=== PATIENT | male | born 1970 | race Caucasian/White ===

== ENCOUNTER 2017-09-25 09:13 | Day surgery (SDC) | payer MEDICARE, OTHER ==
[2017-09-25] VITALS (8 sets, daily range): BP systolic 103–137; BP diastolic 49–92
[~2017-09-25] VITALS: Ht 180.3 cm; Wt 88.5 kg
--- NOTE | 2017-09-25 06:53 | Pre-Procedure Note/Attestation ---
Pre-Procedure Note/Attestation Complete Prior to Procedure Planned Procedure: left Procedure Narrative: left shoulder scope, labral repair and decompression of cyst Indications for Procedure Pre-Operative Diagnosis: left shoulder dislocation Attestation I attest that I discussed the nature of the procedure; its benefits; risks and complications; and alternatives (and the risks and benefits of such alternatives ), prior to the procedure, with the patient (or the patient's legal product representative). I attest that, if there was a reasonable possibility of needing a blood transfusion, the patient (or the patient's legal product representative) was given the [facility] standardized written summary, pursuant to the Chuck Ar Blood Safety Act ([place] Health and Safety Code # 1645, as amended). I attest that I re-evaluated the patient just prior to the surgery and that there has been no change in the patient's H&P, except as documented below:none Genaro Mendieta MD Sep 25, 2017 06:53
[~2017-09-25 09:13] MED LIST: BACITRACIN15 GM TOPIC; Bupivacaine 0.5% Inj 30 ml vial INJ ONE; ceFAZolin 1gm in D5W 55ml IVP ONE; celeBREX 200mg Cap **SURGERY PATIENTS ONLY ORAL ONE; oxyCONTIN 20mg tab ORAL ONE
[2017-09-25] MEDS ORDERED: oxyCONTIN 20mg tab ORAL ONE (10:04)
[2017-09-25] MEDS ORDERED: celeBREX 200mg Cap **SURGERY PATIENTS ONLY ORAL ONE (10:04)
[2017-09-25] MEDS ORDERED: GABAPENTIN300 MG ORAL (10:15)
[2017-09-25] MEDS ORDERED: NEXIUM20 MG ORAL (10:15)
[2017-09-25] MEDS ORDERED: VALIUM5 MG ORAL (10:16)
[2017-09-25] MEDS ORDERED: AMBIEN10 M1 ORAL (10:17)
[2017-09-25] MEDS ORDERED: NORCO 5-325 TA1 EACH ORAL (10:17)
[2017-09-25] MEDS ORDERED: KLONOPIN1 MG ORAL (10:17)
[2017-09-25] MEDS ORDERED: IBUPROFEN600 MG ORAL (10:18)
[2017-09-25] MEDS ORDERED: BIKTARVY 50-201 EACH PO (10:19)
[2017-09-25] MEDS ORDERED: Dexamethasone 4mg/ml vial ONE (10:20)
[2017-09-25] MEDS ORDERED: Lidocaine 1% MPF 10mg/ml 5ml ONE (10:20)
[2017-09-25] MEDS ORDERED: Ropivacaine 5mg/ml Vial 30ml INJ ONE ×2 (10:20→10:36)
[2017-09-25] MEDS ORDERED: Sodium Chloride 10ml vial INJ ONE (10:20)
[2017-09-25] MEDS ORDERED: Propofol 200mg/20ml IV ONE (10:20)
[2017-09-25] MEDS ORDERED: Alfentanil 2ml Inj ONE (10:29)
[2017-09-25] MEDS ORDERED: EPINEPHrine 1mg/1ml Amp ONE ×2 (10:35→11:09)
[2017-09-25] MEDS ORDERED: Bupivacaine 0.5% Inj 30 ml vial INJ ONE ×2 (10:36→11:10)
[2017-09-25] MEDS ORDERED: LR 1000ml ONE (11:00)
[2017-09-25] MEDS ORDERED: Norco 5mg/325mg tab ORAL PRN ×2 (11:00→12:00)
[2017-09-25] MEDS ORDERED: Tylenol #3 tab (300mg/30mg) ORAL PRN (11:00)
[2017-09-25] MEDS ORDERED: Sterile Water Irrig 1000ml IRRIG ONE (11:00)
[2017-09-25] MEDS ORDERED: D5 1/2NS 1,000 ML IV SCH (11:00)
[2017-09-25] MEDS ORDERED: NS Irrig 4000ml IRRIG ONE ×2 (11:00→11:58)
[2017-09-25] MEDS ORDERED: Morphine Sulfate 2mg/ml Inj IVP PRN (11:00)
--- NOTE | 2017-09-25 11:09 | Anethesia Preoperative Eval ---
Anesthesia Pre-op PMH/ROS General Date of Evaluation: Sep 25, 2017 Time of Evaluation: 11:06 Anesthesiologist: Stacey ASA Score: ASA 3 Mallampati Score Class I : Soft palate, uvula, fauces, pillars visible Class II: Soft palate, uvula, fauces visible Class III: Soft palate, base of uvula visible Class IV: Only hard plate visible Mallampati Classification: Class II Surgeon: Gayatri Diagnosis: L Shoulder Pain Surgical Procedure: L Shoulder Arthroscopy Anesthesia History: none Family History: no anesthesia problems Allergies: Coded Allergies: No Known Allergies (Unverified , 07/24/15) Medications: see eMAR Past Medical History Gastrointestinal/Genitourinary: Reports: GERD, other - Hepatis B Hematology/Immune: Reports: other - HIV, Lymphoma R Arm PSxH Narrative: R Arm pit Excision Anesthesia Pre-op Phys. Exam Physician Exam Last Vital Signs Date Time Temp Pulse Resp B/P (MAP) Pulse Ox O2 Delivery O2 Flow Rate FiO2 09/25/17 10:08 98.0 67 18 103/69 97 Room Air 98.0 Constitutional: NAD Neurologic: CN 2-12 intact Cardiovascular: RRR Respiratory: CTA Gastrointestinal: S/NT/ND Airway Exam Mallampati Score: Class II MO: full ROM: limited Teeth: intact Anesthesia Pre-op A/P Risk Assessment & Plan Assessment: ASA 3 Plan: GA, BIS, L Supraclavicular Block Status Change Before Surgery: No Pre-Antibiotics Dru Grams Ancef IV Given Within 1 Hr of Incision: Yes Time Given: 11:23 Jordan Ibarra MD Sep 25, 2017 11:09
[2017-09-25] MEDS ORDERED: LR 1000ml 1,000 ML IVLG SCH (11:51)
--- NOTE | 2017-09-25 11:53 | Immediate Post-Op Evaluation ---
Immediate Post-Op Evalulation Immediate Post-Op Evalulation Procedure: Truong Davis Arthroscopy Date of Evaluation: Sep 25, 2017 Time of Evaluation: 13:13 IV Fluids: 500 LR Blood Products: 0 Estimated Blood Loss: 10 Urinary Output: 0 Blood Pressure Systolic: 130 Blood Pressure Diastolic: 92 Pulse Rate: 77 Respiratory Rate: 18 O2 Sat by Pulse Oximetry: 100 Temperature (Fahrenheit): 97.6 Pain Score (1-10): 1 Nausea: No Vomiting: No Complications 0 Patient Status: awake, reacts, patent, none Hydration Status: adequate Dru Grams Ancef IV Given Within 1 Hr of Incision: Yes Time Given: 11:23 Jordan Ibarra MD Sep 25, 2017 11:53
--- NOTE | 2017-09-25 11:54 | 48 Hour Post Anesthesia Eval ---
Post Anesthesia Evaluation Procedure: Truong Davis Arthroscopy Date of Evaluation: Sep 25, 2017 Time of Evaluation: 15:21 Blood Pressure Systolic: 123 0: 78 Pulse Rate: 79 Respiratory Rate: 18 Temperature (Fahrenheit): 98.2 O2 Sat by Pulse Oximetry: 99 Airway: patent Nausea: No Vomiting: No Pain Intensity: 1 Hydration Status: adequate Cardiopulmonary Status: Stable Mental Status/LOC: patient returned to baseline Follow-up Care/Observations: 0 Post-Anesthesia Complications: 0 Follow-up care needed: ready to discharge Jordan Ibarra MD Sep 25, 2017 11:53
[2017-09-25] MEDS ORDERED: Metoclopramide 10mg/2ml Inj IVP PRN (12:00)
[2017-09-25] MEDS ORDERED: Hydromorphone 0.5mg/0.5ml inj IVP PRN (12:00)
[2017-09-25] MEDS ORDERED: oxyCODONE HCL/Acetaminophen 5/325mg ORAL PRN (12:00)
[2017-09-25] MEDS ORDERED: Ketorolac 30mg Inj IV PRN ×2 (12:00)
[2017-09-25] MEDS ORDERED: fentaNYL 100 mcg/2 mL IV PRN (12:00)
[2017-09-25] MEDS ORDERED: DiphenhydrAMINE 50mg/ml Inj IVP PRN (12:00)
[2017-09-25] MEDS ORDERED: Atropine Inj 1mg/10ml Syr IV PRN (12:00)
[2017-09-25] MEDS ORDERED: LORazepam Inj 2mg/ml 1ml IV PRN (12:00)
[2017-09-25] MEDS ORDERED: Midazolam 2mg/2ml Inj IVP PRN (12:00)
[2017-09-25] MEDS ORDERED: HYDROcodone/Acetamin 7.5/325 tab ORAL PRN (12:00)
[2017-09-25] MEDS ORDERED: Labetalol 5mg/ml 20ml vial IV PRN (12:00)
--- NOTE | 2017-09-25 12:56 | Brief Operative Note ---
Immediate Post Operative Note Operative Note Chief Complaint: left shoulder instability Pre-op Diagnosis: left shoulder labral tear Procedure: left shoulder scope, sad, mini rachael, labral repair Post-op Diagnosis: same as pre-op Findings: consistent w/pre-op dx studies Surgeon: md kendrick [employer] Director: piero neri Anesthesiologist: md juan Anesthesia: general Specimen: none Complications: none Condition: stable Fluids: ns Estimated Blood Loss: minimal Drains: none Implant(s) used?: Yes - biomet Elida Neri Sep 25, 2017 12:56
--- NOTE | 2017-09-25 17:00 | Operative Note - Dictated ---
SURGERY DATE: 09/25/2017 PREOPERATIVE DIAGNOSES: 1. Left shoulder impingement. 2. Left shoulder posterior labral tearing with some instability. POSTOPERATIVE DIAGNOSES: 1. Left shoulder posterior labral tearing measuring 1.5 cm in the posteroinferior aspect of the shoulder. 2. Left shoulder subacromial impingement and bursitis. 3. Left shoulder bone spur underneath the clavicle. PROCEDURE: 1. Left shoulder posterior labral tearing measuring 1.5 cm in the posteroinferior aspect of the shoulder. 2. Left shoulder subacromial impingement and bursitis. 3. Left shoulder bone spur underneath the clavicle. 4. Left shoulder arthroscopy and extensive intra-articular shaving. 5. Left shoulder subacromial bursoscopy, bursectomy, and subacromial decompression. 6. Left shoulder mini-Alexy procedure (resection of inferior 30% of distal end of the clavicle for coplaning). 7. Left shoulder posterior labral repair using two Biomet 1.5-mm JuggerKnot anchor, one in the horizontal-mattress fashion and one in the simple fashion. SURGEON: Genaro Mendieta M.D. SYSTEM DESIGNER: Elida Renteria PA-C. Consumer Safety Officer was present during the actual operative portion of the case and was important and essential part of the operation. During the operation, the certified registered dental assistant held and operated the arthroscopic camera for visualization, assisted by manipulating the arm to help with visualization, and helped with essential parts of the repair process as necessary such as operating surgical instruments under surgeon supervision, suture management, and wound closures. ANESTHESIOLOGIST: Dr. Ibarra. ANESTHESIA: LMA anesthesia. ESTIMATED BLOOD LOSS: Minimal. COMPLICATIONS: None. SURGICAL INDICATION: The patient is a 46-year-old male who sustained the above injury to his shoulder. The patient was treated non-operative initially, but this did not alleviate the patients symptoms. Therefore, after discussing all non-surgical and surgical options, and discussing all foreseeable risk and benefits of surgery, the patient opted for surgical treatment as described above. PATIENT POSITIONING: The patient was brought to the operating room table and was placed on the operating room table. All pressure points were well padded. General anesthesia was induced and the patient was then placed in the lateral decubitus position. All pressure points were well padded again and an axillary roll was placed. The patient's shoulder was then prepped and draped in the usual sterile fashion. Time-out was performed and the appropriate preoperative antibiotic was given by the anesthesiologist. EXAMINATION OF SHOULDER UNDER ANESTHESIA: The shoulder was examined under anesthesia with all muscles well relaxed. The shoulder was forward-flexed, abducted, and was placed through full range of external and internal rotation. The anterior, posterior, and inferior stability of the shoulder was checked. The exam revealed no evidence of adhesive capsulitis and there was some posterior and posteroinferior instability. PORTAL PLACEMENT: The posterior portal was established 2 cm inferior and 1 cm medial to the edge of the posterior acromion. A 1-cm skin incision was made using an #11 blade and using the blunt obturator, the cannula was gently placed through the capsule. The mid-glenoid portal was established just lateral to the coracoid process under direct visualization. Direction of the cannula was first established using a spinal needle, and subsequently, the cannula was placed through the capsule with a blunt obturator. The anterior superior cannula was established under direct visualization off the anterior lateral edge of the acromion and just anterior to the biceps tendon through the rotator interval. The directional of cannula was first established using a spinal needle, and subsequently, the cannula was placed through the capsule with a blunt obturator. DIAGNOSTIC ARTHROSCOPY: The biceps tendon was probed and pulled through the joint for visualization. It appeared normal. The biceps anchor was palpated with a probe and was visualized. It appeared well attached and there was no evidence of SLAP tear. The posterior labrum and axillary recess was visualized. There was evidence of posterior labral tearing especially inferiorly. The glenoid articular surface was visualized and it appeared normal. The articular surface of the rotator cuff was visualized and probed next. There was no evidence of articular sided rotator cuff tear extending from the supraspinatus back to the posterior cuff. The humeral head articular surface was then visualized. There was no evidence of articular cartilage damage. Next the anterior labrum, middle glenohumeral ligament, subscapularis tendon, and the anteroinferior glenohumeral ligament were evaluated. These structures were completely normal. At this point, the scope was moved to the mid-glenoid portal and the posterior structures including the posterior labrum, posterior capsule, and posterior cuff were visualized. There was posterior labral tearing from mid glenoid to posteroinferior glenoid. There is patulous posterior capsule. The subscapularis recess was devoid of any loose bodies and the anterior capsule was well-attached to the humeral neck. The middle and anteroinferior glenohumeral ligament was visualized. These structures were completely normal. OPERATIVE DEBRIDEMENTS AND REPAIR: Care was given to all partial-thickness tears and frayed structures in the shoulder joint. The frayed rotator cuff and labrum was debrided using a shaver initially through the anterior portal and subsequently through the posterior portal to complete the debridement. This allowed for smooth debridement of all affected structures and all loose fragments were removed. At this point, care was given to posterior labral tear. Using a Liberator elevator, the capsule and labrum was mobilized. At this point, using a shaver, the posterior labrum was debrided and the bone was debrided to a bleeding surface. Subsequently, two 1.5-mm JuggerKnot anchors were placed in after drilling the glenoid and it was ensured that these anchors were well-seated and well-locked in. At this point, the most inferior anchor was used to pass two sutures in horizontal mattress through the posterior labrum and posteroinferior glenohumeral ligament. Plication sutures were placed in to tighten up the posteroinferior capsule. The posteroinferior suture which was passed in horizontal mattress was then tied using SMC knot followed by three half-hitches. The more superior anchor was then used to pass a simple stitch and tied at the labrum down to the posterior glenoid. This provided excellent stability. This area was probed and reprobed after repair and there was no instability pattern. All excess sutures were removed. At this point, care was given to subacromial space. DIAGNOSTIC BURSOSCOPY AND SUBACROMIAL DECOMPRESSION: The subacromial bursa was entered from the posterior portal. The anterior portal was established under the CA ligament using a switching stick. Subacromial arthroscopy was initiated. There was extensive bursitis and thickened and inflamed bursa tissue present. The CA ligament appeared to be scuffed and frayed. The shaver was placed through the anterior cannula and debridement of the hypertrophic bursa tissue was accomplished. Once visualization was adequate, a lateral portal was established using a blunt trocar in the mid portion of the acromion bone in the anterior-posterior direction and approximately 2 cm lateral to the lateral edge of the acromion. Using combination of shaver and electrocautery, the CA ligament was released from the undersurface of the acromion and a complete bursectomy was accomplished. At this point, a subacromial decompression was performed using a tonia initially taking off 5-8 mm of the anterolateral edge of the acromion from the lateral portal and viewing from the posterior portal. Then the lateral border of the undersurface of the acromion was decompressed to the same depth as the anterolateral edge. A posterior trough was then created in the acromion in line with the posterior edge of the clavicle. At this point, the scope was placed in the lateral portal and the subacromial decompression was performed from the posterior portal decompressing the undersurface of the acromion to depth of 5-8 mm. The decompression was performed anterior to the previously marked trough all the way medially to the level of the AC joint. At all times, care was given not to take off too much bone in order to avoid risk of fracture of the acromion. An excellent subacromial decompression was performed in this fashion. At this point, the bursal side of the rotator cuff was examined. All the bursa over the rotator cuff was removed and the rotator cuff was examined with a probe. The arm was placed into external rotation, neutral, and then internal rotation and there was no evidence of tear of the rotator cuff. The scope was then placed in the posterior portal and the subacromial decompression was rechecked to assure there was no area of bone spur that would be still impinging onto the rotator cuff. EVALUATION OF DISTAL CLAVICLE AND DISTAL CLAVICLE RESECTION: Care was given to the distal end of the clavicle. Using electrocautery and rodriguez, the distal end of the bursa and soft tissue around the distal end of the clavicle was debrided and cleaned. Care was given not to inflict excessive trauma to the ligaments of the AC joint. The distal end of the clavicle appeared to have an inferior osteophyte extending down well bellow the level of the acromion at the level of the AC joint. This appeared to be impinging onto the supraspinatus muscle belly and the musculotendinous junction of the rotator cuff. A mini-Alexy procedure was performed by using a tonia to resect the inferior 30% of the distal end of the clavicle. This decompression allowed space for the inferior structures to slide without impingement. This co-planed the inferior edge of the distal clavicle with the inferior edge of the acromion. CONDITION AT DISCHARGE FROM OPERATING ROOM: The skin was reapproximated and sterile dressing and sling were applied. All lap counts and instrument counts were correct. The patient tolerated the procedure well without complications and was taken to the recovery room in stable conditions. Genaro Mendieta M.D. DR: Joy JOB#: [id number] CC:
== END 2017-09-25 14:30 | disposition home or self-care (01) ==
LOC: SUR 09:13
DX: M75.42 Impingement syndrome of left shoulder (principal); S43.402A Unspecified sprain of left shoulder joint, initial encounter; M75.52 Bursitis of left shoulder; K21.9 Gastro-esophageal reflux disease without esophagitis; Z86.19 Personal history of other infectious and parasitic diseases; X58.XXXA Exposure to other specified factors, initial encounter; Y92.9 Unspecified place or not applicable
CPT/HCPCS: 29807; 29823; 29824; J0690; J1100; J2250; J2405; J2704; J2795; J3490; J7120; 94003; 94150; C1713

== ENCOUNTER 2017-12-25 15:00 | Outpatient (RCR) | payer MEDICARE, OTHER ==
[~2017-12-25 15:00] MED LIST changes: +AMBIEN10 M1 ORAL; +BIKTARVY 50-201 EACH PO; -Bupivacaine 0.5% Inj 30 ml vial INJ ONE; +GABAPENTIN300 MG ORAL; +IBUPROFEN600 MG ORAL; +KLONOPIN1 MG ORAL; +NEXIUM20 MG ORAL; +NORCO 5-325 TA1 EACH ORAL; +VALIUM5 MG ORAL; -ceFAZolin 1gm in D5W 55ml IVP ONE; -celeBREX 200mg Cap **SURGERY PATIENTS ONLY ORAL ONE; -oxyCONTIN 20mg tab ORAL ONE
== END 2018-01-06 | disposition home or self-care (01) ==
LOC: PTY 15:00
DX: M24.412 Recurrent dislocation, left shoulder (principal); M24.411 Recurrent dislocation, right shoulder; M12.511 Traumatic arthropathy, right shoulder; M12.512 Traumatic arthropathy, left shoulder
CPT/HCPCS: 97110; 97161; G8984; G8985

== ENCOUNTER 2018-01-08 12:35 | Outpatient (RCR) | payer MEDICARE, OTHER | END 2018-02-06 | disposition home or self-care (01) | LOC: PTY 12:35 | DX: M24.412 Recurrent dislocation, left shoulder (principal); M12.511 Traumatic arthropathy, right shoulder; M24.411 Recurrent dislocation, right shoulder; M12.512 Traumatic arthropathy, left shoulder ==